=== PATIENT | female | born 1965 | race African-American/Black ===

== ENCOUNTER 2017-05-14 15:59 | Emergency (ER) | payer OTHER ==
[~2017-05-14] VITALS: Ht 160 cm; Wt 77.1 kg
--- NOTE | 2017-05-14 16:00 | NUR ---
RA 881 FROM HOME C/O SYNCOPE. PT STATES SHE FELT PALPITATIONS AND LIGHTHEADED UPON NOTED L EYEBROW LAC. REPORTS VOMITING/DIARRHEA SINCE YESTERDAY. VSS NAD.PT IS AAOX4. COMPLAINS OF PAIN 7/10 IN THE R HAND. PENDING MD MO.
[2017-05-14] MEDS ORDERED: ONDANSETRON HCL/PF 4 MG/2 ML VIAL IVP ONE (17:00)
[2017-05-14] MEDS ORDERED: IV NS 0.9% 1,000 ML BAG IV ONE ×2 (17:00→19:00)
[2017-05-14] MEDS ORDERED: TDAP [DIPH/PERTUSSIS/TET] 0.5 ML VIAL IM ONE ×2 (17:00→17:10)
[2017-05-14] MEDS ORDERED: ACETAMINOPHEN ES 500 MG TABLET PO ONE (17:00)
[2017-05-14] MEDS ORDERED: ONDANSETRON HCL/PF 4 MG/2 ML VIAL ONE (17:10)
[2017-05-14] MEDS ORDERED: ACETAMINOPHEN ES 500 MG TABLET ONE (17:10)
[2017-05-14 18:42] LABS: BASOPHILS # (AUTO) 0.2 /CMM (0.0-0.2); BASOPHILS % (AUTO) 2.5 % (0.0-2.0); EOSINOPHILS % (AUTO) 0.1 % (0.0-6.0); HEMATOCRIT 36 % (33-45); HEMOGLOBIN 11.9 g/dL (11.5-14.8); LYMPHOCYTES # (AUTO) 0.7 /CMM (0.8-4.8); LYMPHOCYTES % (AUTO) 8.4 % (20.0-44.0); MEAN CORPUSCULAR HEMOGLOBIN 27 PG (26.0-33.0); MEAN CORPUSCULAR HGB CONC 33 g/dl (31.0-36.0); MEAN CORPUSCULAR VOLUME 80 fL (82-100); MONOCYTES # (AUTO) 0.4 /CMM (0.1-1.30); MONOCYTES % (AUTO) 4.6 % (2.0-12.0); NEUTROPHILS # (AUTO) 7.3 /CMM (1.8-8.9); NEUTROPHILS % (AUTO) 84.4 % (43.0-81.0); PLATELET COUNT (AUTO) 301 /CMM (150-450); RDW COEFFICIENT OF VARIATION 12.5 (11.5-15.0); RED BLOOD CELL COUNT(AUTO) 4.46 MIL/uL (4.0-5.2); WHITE BLOOD COUNT (AUTO) 8.6 K/uL (4.3-11.0)
[2017-05-14 19:00] LABS: ALBUMIN 3.7 g/dL (3.4-5.0); BILIRUBIN,DIRECT 0.1 mg/dL (0.0-0.2); BILIRUBIN,TOTAL 0.7 mg/dL (0.2-1.0); CALCIUM, SERUM 8.6 mg/dL (8.5-10.1); CREATININE 0.8 mg/dL (0.6-1.3); POTASSIUM 3.3 mmol/L (3.5-5.1); TOTAL PROTEIN, SERUM 7.8 g/dL (6.4-8.2)
[2017-05-14] MEDS ORDERED: LOPERAMIDE HCL (2 MG CAP) 2 MG CAPSULE PO ONE ×2 (20:00→20:17)
[2017-05-14] MEDS ORDERED: METRONIDAZOLE 500 MG TABLET PO ONE (20:00)
[2017-05-14] MEDS ORDERED: LEVOFLOXACIN (500MG) 500 MG TABLET PO ONE (20:00)
[2017-05-14] MEDS ORDERED: LEVOFLOXACIN (500MG) 500 MG TABLET ONE (20:17)
[2017-05-14] MEDS ORDERED: METRONIDAZOLE 500 MG TABLET ONE (20:18)
--- NOTE | 2017-05-14 20:22 | NUR ---
IV removed. Catheter intact and site benign. Pressure and 4x4 applied to site. No bleeding noted. Patient discharged to home in stable condition. Written and verbal after care instructions given. Patient verbalizes understanding of instruction. ambulatory with a steady gait
[2017-05-14 20:24] VITALS: BP 124/69
== END 2017-05-14 20:25 | disposition home or self-care (01) ==
LOC: ER 16:04
DX: S01.112A Laceration without foreign body of left eyelid and periocular area, initial encounter (principal); R55 Syncope and collapse; K52.9 Noninfective gastroenteritis and colitis, unspecified; E87.6 Hypokalemia; K76.0 Fatty (change of) liver, not elsewhere classified; W01.0XXA Fall on same level from slipping, tripping and stumbling without subsequent striking against object, initial encounter; Y93.89 Activity, other specified; Y92.002 Bathroom of unspecified non-institutional (private) residence as the place of occurrence of the external cause; Y99.8 Other external cause status
CPT/HCPCS: 36415; 70450; 74176; 80048; 80076; 85025; 85730; 96361; 96374; 99285; A4606; A6402; J2405; J7030 ×3; Z7610; 90715